=== PATIENT | male | born 1960 | race Caucasian/White ===

== ENCOUNTER → 2016-08-18 | Outpatient (CLI) | payer OTHER ==
[2015-02-13 11:05] VITALS: BP 137/71
[~2016-08-18] MED LIST: AMOX1TAB61 PO; CETI10CA PO; FLUT16SP2 NS; MULT-460 PO; OXYC-323 PO; RANI150T2 PO
--- NOTE | 2016-08-18 10:05 | RAD ---
Indication restage lymphoma. PET/CT was performed from the skull through the proximal thigh. CT was performed primarily for localization and attenuation purposes as opposed primary diagnostic purposes. The blood sugar during the examination was 108. 14 mCi of FDG was injected. Note is made of a previous examination one year ago. On CT the visualized brain appears unremarkable. Polyps or retention cysts are noted in the maxillary sinuses. A significant finding is not seen in the neck. No significant axillary or mediastinal adenopathy is seen. No significant hilar adenopathy is seen. An acute or significant finding in the chest is not seen. No acute or significant finding seen in the abdomen or pelvis. On PET the FDG is physiologically distributed in the visualized brain. No abnormal activity is seen in the neck. No abnormal activity is seen in the chest. FDG is physiologically distributed in the abdomen and pelvis. IMPRESSION: No evidence of tumor recurrence.
== END | disposition home or self-care (01) ==
LOC: PETSC 07:37
PROVIDERS: ATTEND Internal Medicine Hematology & Oncology
DX: C82.11 Follicular lymphoma grade II, lymph nodes of head, face, and neck (principal)
CPT/HCPCS: 78815; A9552

== ENCOUNTER → 2016-08-30 | Outpatient (CLI) | payer OTHER ==
[2015-02-13 11:05] VITALS: BP 137/71
[2016-08-30 09:34] LABS: BASO % 0 % (0-3); EOS % 1 % (0-3); HEMATOCRIT 44.2 % (39.0-53.0); HEMOGLOBIN 15.6 g/dL (13.0-17.5); LYMPH # 0.3 x10^3/uL (1.0-4.8); LYMPH % 11 % (24-48); MEAN CORPUSCULAR HEMOGLOBIN 33 pg (25-35); MEAN CORPUSCULAR HGB CONC 35 g/dL (31-37); MEAN CORPUSCULAR VOLUME 93 fL (79-100); MONO % 21 % (0-9); NEUT % 67 % (31-73); PLATELET COUNT 127 x10^3/uL (140-400); RED BLOOD COUNT 4.78 x10^6/uL (4.30-5.70); RED CELL DISTRIBUTION WIDTH 13.1 % (11.5-14.5); WHITE BLOOD COUNT 3.1 x10^3/uL (4.0-11.0)
[2016-08-30 09:36] LABS: ALBUMIN 3.8 g/dL (3.4-5.0); ALBUMIN/GLOBULIN RATIO 1.3 (1.0-1.7); CALCIUM 8.9 mg/dL (8.5-10.1); CREATININE 1.2 mg/dL (0.7-1.3); GFR 62.4; POTASSIUM 4.4 mmol/L (3.5-5.1); TOTAL BILIRUBIN 1.2 mg/dL (0.2-1.0); TOTAL PROTEIN 6.8 g/dL (6.4-8.2)
== END | disposition home or self-care (01) ==
LOC: LAB 08:53
PROVIDERS: ATTEND Internal Medicine Hematology & Oncology
DX: C82.11 Follicular lymphoma grade II, lymph nodes of head, face, and neck (principal)
CPT/HCPCS: 36415; 80053; 82232; 83615; 85027

== ENCOUNTER 2016-09-23 09:34 | Day surgery (SDC) | payer OTHER ==
[~2016-09-23 09:34] MED LIST changes: +HYDROmorphone 2 MG/ML VIAL IV PRN; +IV RINGERS,LACTATED 1000ML 1,000 ML IV SCH; +LIDOCAINE 1% 1 ML SYRINGE. ID PRN; +LIDOCAINE 2% PF Vial for OR 5 ML VIAL. ONE; +MORPHINE SULFATE 2 MG/ML DISP.SYRIN. IV PRN; +ONDANSETRON PF 4 MG/2 ML VIAL. IV PRN; +PROCHLORPERAZINE 10 MG/2 ML VIAL. IV PRN; +PROPOFOL 20 ML IV ONE; +fentaNYL PF VIAL 100 MCG/2 ML VIAL IV PRN
[2016-09-23] MEDS ORDERED: BUPIVACAINE-EPI 0.25%-1:200000 50 ML VIAL. ONE (09:38)
[2016-09-23] MEDS ORDERED: BUPIVACAINE-EPI 0.5%-1:200000 50 ML VIAL. ONE (09:40)
[2016-09-23] MEDS ORDERED: fentaNYL PF VIAL 100 MCG/2 ML VIAL ONE (10:37)
--- NOTE | 2016-09-23 12:00 | DISCH ---
DISCHARGE INSTRUCTIONS Condition on Discharge Condition on Discharge: Stable Activity After Discharge Activity Instructions for Disc: Activity as tolerated, Avoid exertion Lifting Instructions after Dis: No heavy lifting Driving Instructions after Dis: Do not drive today Diet after Discharge Diet after Discharge: Regular Wound Incision Care Wound/Incision Care: Ice to area for comfort Other wound/incision instructi: may shower tomorrow Follow-Up Follow up with: SON Banda MD Sep 23, 2016 12:00
[2016-09-23 12:15] VITALS: BP 118/74
--- NOTE | 2016-09-23 14:23 | PDOC4 ---
Operative Note Operative Note Date of procedure: September 23, 2016 Procedure: Removal left subclavian power port Preoperative diagnosis: Completed chemotherapy for lymphoma Postoperative diagnosis: Same Surgeon: Fernando Anesthesia: Local with sedation Indications: Gerardo has completed his chemotherapy for treatment of his lymphoma and is brought for removal of his port Operative report: With IV sedation on board the left chest was prepped and draped in usual sterile fashion. Half percent Marcaine with epinephrine was infiltrated over the port site. Incision made and the port and catheter removed intact along with the fibrinous sheath around the reservoir. Good hemostasis was present. Wound closed with interrupted inverted 3-0 Vicryl in the subcutaneous tissue. Subcuticular 4-0 Monocryl Steri-Strips and a sterile dressing applied.. Patient taken the postoperative stable condition having tolerated procedure well SON BRIGHT MD Sep 23, 2016 14:23
== END 2016-09-23 12:23 | disposition home or self-care (01) ==
LOC: SURG 09:34
PROVIDERS: ATTEND Surgery
DX: C85.90 Non-Hodgkin lymphoma, unspecified, unspecified site (principal); K21.9 Gastro-esophageal reflux disease without esophagitis; Z86.39 Personal history of other endocrine, nutritional and metabolic disease; Z88.1 Allergy status to other antibiotic agents
CPT/HCPCS: 36590; J0690; J2001; J2704; J3010

== ENCOUNTER → 2017-02-28 | Outpatient (CLI) | payer OTHER ==
[~2017-02-28] MED LIST changes: -HYDROmorphone 2 MG/ML VIAL IV PRN; -IV RINGERS,LACTATED 1000ML 1,000 ML IV SCH; -LIDOCAINE 1% 1 ML SYRINGE. ID PRN; -LIDOCAINE 2% PF Vial for OR 5 ML VIAL. ONE; -MORPHINE SULFATE 2 MG/ML DISP.SYRIN. IV PRN; -ONDANSETRON PF 4 MG/2 ML VIAL. IV PRN; -PROCHLORPERAZINE 10 MG/2 ML VIAL. IV PRN; -PROPOFOL 20 ML IV ONE; -fentaNYL PF VIAL 100 MCG/2 ML VIAL IV PRN
[2017-02-28 16:25] LABS: BASO % 1 % (0-3); EOS % 1 % (0-3); HEMATOCRIT 46.8 % (39.0-53.0); HEMOGLOBIN 16.7 g/dL (13.0-17.5); LYMPH # 0.7 x10^3/uL (1.0-4.8); LYMPH % 11 % (24-48); MEAN CORPUSCULAR HEMOGLOBIN 34 pg (25-35); MEAN CORPUSCULAR HGB CONC 36 g/dL (31-37); MEAN CORPUSCULAR VOLUME 94 fL (79-100); MONO % 9 % (0-9); NEUT % 78 % (31-73); PLATELET COUNT 145 x10^3/uL (140-400); RED CELL DISTRIBUTION WIDTH 12.4 % (11.5-14.5); WHITE BLOOD COUNT 6.5 x10^3/uL (4.0-11.0)
[2017-02-28 16:46] LABS: ALBUMIN 3.9 g/dL (3.4-5.0); ALBUMIN/GLOBULIN RATIO 1.3 (1.0-1.7); CALCIUM 7.8 mg/dL (8.5-10.1); CREATININE 1.4 mg/dL (0.7-1.3); GFR 52.2; TOTAL BILIRUBIN 0.8 mg/dL (0.2-1.0)
== END | disposition home or self-care (01) ==
LOC: LAB 16:09
PROVIDERS: ATTEND Internal Medicine Hematology & Oncology
DX: C82.11 Follicular lymphoma grade II, lymph nodes of head, face, and neck (principal)
CPT/HCPCS: 36415; 80053; 82232; 83615; 85025

== ENCOUNTER → 2017-08-28 | Outpatient (CLI) | payer OTHER ==
[2017-08-28 08:50] LABS: ADD MAN DIFF? NO
[2017-08-28 08:54] LABS: BASO % 1 % (0-3); EOS # 0.1 x10^3/uL (0.0-0.7); EOS % 1 % (0-3); HEMATOCRIT 45.4 % (39.0-53.0); HEMOGLOBIN 15.8 g/dL (13.0-17.5); LYMPH # 0.7 x10^3/uL (1.0-4.8); LYMPH % 13 % (24-48); MEAN CORPUSCULAR HEMOGLOBIN 33 pg (25-35); MEAN CORPUSCULAR HGB CONC 35 g/dL (31-37); MEAN CORPUSCULAR VOLUME 94 fL (79-100); MONO # 0.6 x10^3/uL (0.0-1.1); MONO % 11 % (0-9); NEUT % 75 % (31-73); PLATELET COUNT 130 x10^3/uL (140-400); RED BLOOD COUNT 4.85 x10^6/uL (4.30-5.70); RED CELL DISTRIBUTION WIDTH 12.5 % (11.5-14.5); WHITE BLOOD COUNT 5.3 x10^3/uL (4.0-11.0)
[2017-08-28 10:34] LABS: ALBUMIN 3.8 g/dL (3.4-5.0); ALBUMIN/GLOBULIN RATIO 1.3 (1.0-1.7); ALK PHOS 65 U/L (46-116); ALT (SGPT) 35 U/L (16-63); ANION GAP 7 (6-14); AST (SGOT) 26 U/L (15-37); BLOOD UREA NITROGEN 27 mg/dL (8-26); BUN/CREATININE RATIO 21 (6-20); CALCIUM 8.7 mg/dL (8.5-10.1); CARBON DIOXIDE 27 mmol/L (21-32); CHLORIDE 109 mmol/L (98-107); CHOLESTEROL 168 mg/dL (0-200); CREATININE 1.3 mg/dL (0.7-1.3); GFR 56.7; GLUCOSE 105 mg/dL (70-99); HDLC 43 mg/dL (40-60); LACTATE DEHYDROGENASE 183 U/L (85-227); LDLC 114 mg/dL (0-100); NON-HDL CHOLESTEROL 125 mg/dL (0-129); POTASSIUM 4.1 mmol/L (3.5-5.1); SODIUM 143 mmol/L (136-145); TOTAL BILIRUBIN 1.3 mg/dL (0.2-1.0); TOTAL PROTEIN 6.7 g/dL (6.4-8.2); TRIGLYCERIDES 57 mg/dL (0-150); VLDLC 11 mg/dL (0-40)
[2017-08-28 10:39] LABS: CHOLESTEROL/HDL RATIO 3.9
[2017-08-30 14:33] LABS: BETA 2 MICROGLOB 2.2 mg/L (0.6-2.4)
== END | disposition home or self-care (01) ==
LOC: LAB 08:40
DX: Z13.220 Encounter for screening for lipoid disorders (principal); C82.11 Follicular lymphoma grade II, lymph nodes of head, face, and neck
CPT/HCPCS: 36415; 80053; 80061; 82232; 83615; 85025

== ENCOUNTER → 2017-08-31 | Outpatient (CLI) | payer OTHER | END | disposition home or self-care (01) | LOC: PETSC 07:50 | DX: C82.11 Follicular lymphoma grade II, lymph nodes of head, face, and neck (principal) | CPT/HCPCS: 78815; A9552 ==

== ENCOUNTER → 2018-03-02 | Outpatient (CLI) | payer OTHER ==
[~2018-03-02] MED LIST changes: -OXYC-323 PO; +OXYC1TAB15 PO
[2018-03-02 09:36] LABS: ALBUMIN/GLOBULIN RATIO 1.3 (1.0-1.7); CREATININE 1.2 mg/dL (0.7-1.3); GFR 62.2; POTASSIUM 4.3 mmol/L (3.5-5.1); TOTAL BILIRUBIN 1.1 mg/dL (0.2-1.0); TOTAL PROTEIN 7.2 g/dL (6.4-8.2)
[2018-03-02 09:38] LABS: CHOLESTEROL/HDL RATIO 5.1
[2018-03-02 10:12] LABS: BASO % 0 % (0-3); EOS # 0.1 x10^3/uL (0.0-0.7); EOS % 1 % (0-3); HEMATOCRIT 48.3 % (39.0-53.0); HEMOGLOBIN 17.1 g/dL (13.0-17.5); LYMPH # 0.7 x10^3/uL (1.0-4.8); LYMPH % 12 % (24-48); MEAN CORPUSCULAR HEMOGLOBIN 33 pg (25-35); MEAN CORPUSCULAR HGB CONC 36 g/dL (31-37); MEAN CORPUSCULAR VOLUME 92 fL (79-100); MONO # 0.6 x10^3/uL (0.0-1.1); MONO % 10 % (0-9); NEUT # 4.5 x10^3uL (1.8-7.7); NEUT % 77 % (31-73); PLATELET COUNT 132 x10^3/uL (140-400); RED BLOOD COUNT 5.26 x10^6/uL (4.30-5.70); RED CELL DISTRIBUTION WIDTH 12.8 % (11.5-14.5); WHITE BLOOD COUNT 5.8 x10^3/uL (4.0-11.0)
== END | disposition home or self-care (01) ==
LOC: LAB 08:44
PROVIDERS: ATTEND Internal Medicine Hematology & Oncology
DX: Z13.220 Encounter for screening for lipoid disorders (principal); C82.11 Follicular lymphoma grade II, lymph nodes of head, face, and neck
CPT/HCPCS: 36415; 80053; 80061; 82232; 83615; 85025

== ENCOUNTER → 2018-08-30 | Outpatient (CLI) | payer OTHER ==
[2018-08-30 08:23] LABS: BASO % 0 % (0-3); EOS # 0.1 x10^3/uL (0.0-0.7); EOS % 1 % (0-3); HEMATOCRIT 47.4 % (39.0-53.0); HEMOGLOBIN 16.6 g/dL (13.0-17.5); LYMPH # 0.6 x10^3/uL (1.0-4.8); LYMPH % 8 % (24-48); MEAN CORPUSCULAR HEMOGLOBIN 33 pg (25-35); MEAN CORPUSCULAR HGB CONC 35 g/dL (31-37); MEAN CORPUSCULAR VOLUME 93 fL (79-100); MONO # 0.7 x10^3/uL (0.0-1.1); MONO % 10 % (0-9); NEUT # 5.7 x10^3uL (1.8-7.7); NEUT % 81 % (31-73); PLATELET COUNT 139 x10^3/uL (140-400); RED BLOOD COUNT 5.11 x10^6/uL (4.30-5.70); RED CELL DISTRIBUTION WIDTH 12.7 % (11.5-14.5); WHITE BLOOD COUNT 7.1 x10^3/uL (4.0-11.0)
[2018-08-30 08:34] LABS: ALBUMIN 3.9 g/dL (3.4-5.0); ALBUMIN/GLOBULIN RATIO 1.6 (1.0-1.7); CALCIUM 8.8 mg/dL (8.5-10.1); CREATININE 1.2 mg/dL (0.7-1.3); POTASSIUM 4.1 mmol/L (3.5-5.1); TOTAL BILIRUBIN 1.3 mg/dL (0.2-1.0); TOTAL PROTEIN 6.4 g/dL (6.4-8.2)
--- NOTE | 2018-08-30 11:21 | RAD ---
FDG tumor localization scan, PET/CT, 08/30/2018: HISTORY: Restaging lymphoma Following IV injection of 14.5 mCi of 18 F-FDG, imaging was performed from the skull base to the proximal thighs. The noncontrast CT component was performed for attenuation correction and anatomic localization purposes rather than for primary diagnosis. The patient's blood glucose level at the time of injection was 96 MG/DL. Comparison is made to a study from 08/31/2017. There is symmetrically increased activity in the tonsillar regions compatible with inflammation. Physiologic activity is seen in the tongue and laryngeal regions. Symmetric parotid and submandibular gland activity is presumably physiologic. No hypermetabolic cervical adenopathy is seen. No abnormal mediastinal or pulmonary FDG uptake is seen. Normal GI tract and urinary tract activity is present in the abdomen and pelvis. No hypermetabolic abdominal or pelvic lesion is identified. Incidental CT findings include the presence of mucosal thickening along the floor of the left maxillary sinus. The right thyroid lobe appears to be surgically absent. A small low density focus is noted in the lower pole of left lobe of the thyroid gland. No abnormal FDG uptake is present at that level. IMPRESSION: No FDG/PET evidence of recurrent lymphoma.
== END | disposition home or self-care (01) ==
LOC: PETSC 07:15
PROVIDERS: ATTEND Internal Medicine Hematology & Oncology
DX: C82.11 Follicular lymphoma grade II, lymph nodes of head, face, and neck (principal); J34.89 Other specified disorders of nose and nasal sinuses
CPT/HCPCS: 36415; 78815; 80053; 82232; 83615; 85025; A9552

== ENCOUNTER → 2019-03-20 | Outpatient (CLI) | payer OTHER ==
[2019-03-20 09:44] LABS: BASO % 0 % (0-3); EOS # 0.1 x10^3/uL (0.0-0.7); EOS % 1 % (0-3); HEMATOCRIT 46.5 % (39.0-53.0); HEMOGLOBIN 16.4 g/dL (13.0-17.5); LYMPH # 0.9 x10^3/uL (1.0-4.8); LYMPH % 12 % (24-48); MEAN CORPUSCULAR HEMOGLOBIN 32 pg (25-35); MEAN CORPUSCULAR HGB CONC 35 g/dL (31-37); MEAN CORPUSCULAR VOLUME 92 fL (79-100); MONO # 0.6 x10^3/uL (0.0-1.1); MONO % 8 % (0-9); NEUT # 5.9 x10^3/uL (1.8-7.7); NEUT % 80 % (31-73); PLATELET COUNT 126 x10^3/uL (140-400); RED BLOOD COUNT 5.07 x10^6/uL (4.30-5.70); RED CELL DISTRIBUTION WIDTH 12.8 % (11.5-14.5); WHITE BLOOD COUNT 7.4 x10^3/uL (4.0-11.0)
[2019-03-20 10:03] LABS: ALBUMIN/GLOBULIN RATIO 1.5 (1.0-1.7); CREATININE 1.3 mg/dL (0.7-1.3); GFR 56.5; POTASSIUM 4.2 mmol/L (3.5-5.1); TOTAL BILIRUBIN 1.3 mg/dL (0.2-1.0); TOTAL PROTEIN 6.7 g/dL (6.4-8.2)
== END | disposition home or self-care (01) ==
LOC: LAB 08:40
PROVIDERS: ATTEND Internal Medicine Hematology & Oncology
DX: C82.11 Follicular lymphoma grade II, lymph nodes of head, face, and neck (principal)
CPT/HCPCS: 36415; 80053; 82232; 83615; 85025

== ENCOUNTER → 2019-09-17 | Outpatient (CLI) | payer OTHER ==
[2019-09-17 12:18] LABS: BASO % 0 % (0-3); EOS % 1 % (0-3); HEMATOCRIT 45.4 % (39.0-53.0); HEMOGLOBIN 15.9 g/dL (13.0-17.5); LYMPH # 0.8 x10^3/uL (1.0-4.8); LYMPH % 12 % (24-48); MEAN CORPUSCULAR HEMOGLOBIN 33 pg (25-35); MEAN CORPUSCULAR HGB CONC 35 g/dL (31-37); MEAN CORPUSCULAR VOLUME 93 fL (79-100); MONO # 0.5 x10^3/uL (0.0-1.1); MONO % 7 % (0-9); NEUT # 5.3 x10^3/uL (1.8-7.7); NEUT % 79 % (31-73); PLATELET COUNT 129 x10^3/uL (140-400); RED CELL DISTRIBUTION WIDTH 12.7 % (11.5-14.5); WHITE BLOOD COUNT 6.6 x10^3/uL (4.0-11.0)
[2019-09-17 12:24] LABS: ALBUMIN 3.8 g/dL (3.4-5.0); ALBUMIN/GLOBULIN RATIO 1.6 (1.0-1.7); CALCIUM 8.5 mg/dL (8.5-10.1); CREATININE 1.3 mg/dL (0.7-1.3); GFR 56.3; POTASSIUM 4.5 mmol/L (3.5-5.1); TOTAL BILIRUBIN 0.9 mg/dL (0.2-1.0); TOTAL PROTEIN 6.2 g/dL (6.4-8.2)
== END | disposition home or self-care (01) ==
LOC: LAB 11:28
PROVIDERS: ATTEND Internal Medicine Hematology & Oncology
DX: C82.11 Follicular lymphoma grade II, lymph nodes of head, face, and neck (principal)
CPT/HCPCS: 36415; 80053; 82232; 83615; 85025

== ENCOUNTER → 2019-09-19 | Outpatient (CLI) | payer OTHER ==
[2019-09-20 13:13] LABS: KAPPA FREE 16.8 mg/L (3.3-19.4); KAPPA LAMBDA RATIO 1.28 (0.26-1.65); LAMBDA FREE 13.1 mg/L (5.7-26.3)
[2019-09-23 17:08] LABS: IMMUNOGLOBULIN A 94 mg/dL (90-386); IMMUNOGLOBULIN G 701 mg/dL (603-1613); IMMUNOGLOBULIN M 30 mg/dL (20-172)
[2019-09-23 18:07] LABS: ALBUM 3.9 g/dL (2.9-4.4); ALPHA 1 0.2 g/dL (0.0-0.4); ALPHA 2 0.4 g/dL (0.4-1.0); BETA 0.9 g/dL (0.7-1.3); GAMMA 0.6 g/dL (0.4-1.8); SPEP AG RATIO 1.9 (0.7-1.7)
== END | disposition home or self-care (01) ==
LOC: ONCLAB 14:41
PROVIDERS: ATTEND Internal Medicine Hematology & Oncology
DX: Z85.72 Personal history of non-Hodgkin lymphomas (principal)
CPT/HCPCS: 36415; 82784; 83520; 84165; 86334

== ENCOUNTER → 2020-01-31 | Outpatient (CLI) | payer OTHER | LOC: LAB 08:49 | PROVIDERS: ATTEND Internal Medicine | DX: Z12.5 Encounter for screening for malignant neoplasm of prostate (principal) | CPT/HCPCS: 36415; G0103 ==

== ENCOUNTER → 2020-03-24 | Outpatient (CLI) | payer OTHER ==
[2020-03-24 08:48] LABS: BASO % 0 % (0-3); EOS # 0.1 x10^3/uL (0.0-0.7); EOS % 1 % (0-3); HEMATOCRIT 46.9 % (39.0-53.0); HEMOGLOBIN 16.4 g/dL (13.0-17.5); LYMPH # 0.8 x10^3/uL (1.0-4.8); LYMPH % 13 % (24-48); MEAN CORPUSCULAR HEMOGLOBIN 32 pg (25-35); MEAN CORPUSCULAR HGB CONC 35 g/dL (31-37); MEAN CORPUSCULAR VOLUME 92 fL (79-100); MONO # 0.5 x10^3/uL (0.0-1.1); MONO % 8 % (0-9); NEUT # 4.7 x10^3/uL (1.8-7.7); NEUT % 78 % (31-73); PLATELET COUNT 141 x10^3/uL (140-400); RED BLOOD COUNT 5.12 x10^6/uL (4.30-5.70); RED CELL DISTRIBUTION WIDTH 12.5 % (11.5-14.5); WHITE BLOOD COUNT 6.1 x10^3/uL (4.0-11.0)
[2020-03-24 09:10] LABS: CREATININE 1.3 mg/dL (0.7-1.3); GFR 56.3; POTASSIUM 3.9 mmol/L (3.5-5.1)
[2020-03-24 09:17] LABS: ALBUMIN 3.8 g/dL (3.4-5.0); DIRECT BILIRUBIN 0.2 mg/dL (0.0-0.2); TOTAL BILIRUBIN 1.2 mg/dL (0.2-1.0); TOTAL PROTEIN 6.6 g/dL (6.4-8.2)
[2020-03-25 14:11] LABS: KAPPA FREE 15.9 mg/L (3.3-19.4); KAPPA LAMBDA RATIO 1.26 (0.26-1.65); LAMBDA FREE 12.6 mg/L (5.7-26.3)
[2020-03-26 14:17] LABS: IMMUNOGLOBULIN A 101 mg/dL (90-386); IMMUNOGLOBULIN G 721 mg/dL (603-1613); IMMUNOGLOBULIN M 25 mg/dL (20-172)
[2020-03-26 15:15] LABS: FREE T4 0.85 ng/dL (0.76-1.46); THYROID STIM HORMONE (TSH) 3.062 uIU/mL (0.358-3.74)
== END ==
LOC: ONCLAB 08:26
PROVIDERS: ATTEND Internal Medicine Hematology & Oncology
DX: D89.9 Disorder involving the immune mechanism, unspecified (principal)
CPT/HCPCS: 36415; 80048; 80076; 82784; 83520; 83615; 84439; 84443; 85025; 86146; 86334

== ENCOUNTER → 2020-03-24 | Outpatient (CLI) | payer OTHER ==
[2020-03-24 09:25] LABS: CHOLESTEROL/HDL RATIO 5.2
== END ==
LOC: LAB 08:33
PROVIDERS: ATTEND Internal Medicine
DX: Z12.5 Encounter for screening for malignant neoplasm of prostate (principal); C85.90 Non-Hodgkin lymphoma, unspecified, unspecified site
CPT/HCPCS: 36415; 80061; G0103

== ENCOUNTER → 2020-11-13 | Outpatient (CLI) | payer OTHER | LOC: LAB 09:00 | PROVIDERS: ATTEND Internal Medicine Pulmonary Disease | DX: R05 Cough (principal); R09.81 Nasal congestion; Z20.822 Contact with and (suspected) exposure to COVID-19 | CPT/HCPCS: 87426; U0003; U0005 ==

== ENCOUNTER → 2021-03-29 | Outpatient (CLI) | payer OTHER ==
[2021-03-29 09:33] LABS: BASO % 0 % (0-3); EOS # 0.1 x10^3/uL (0.0-0.7); EOS % 1 % (0-3); HEMATOCRIT 46.4 % (39.0-53.0); HEMOGLOBIN 16.5 g/dL (13.0-17.5); LYMPH # 0.8 x10^3/uL (1.0-4.8); LYMPH % 13 % (24-48); MEAN CORPUSCULAR HEMOGLOBIN 33 pg (25-35); MEAN CORPUSCULAR HGB CONC 36 g/dL (31-37); MEAN CORPUSCULAR VOLUME 91 fL (79-100); MONO # 0.6 x10^3/uL (0.0-1.1); MONO % 9 % (0-9); NEUT # 4.8 x10^3/uL (1.8-7.7); NEUT % 76 % (31-73); PLATELET COUNT 138 x10^3/uL (140-400); RED BLOOD COUNT 5.07 x10^6/uL (4.30-5.70); RED CELL DISTRIBUTION WIDTH 12.8 % (11.5-14.5); WHITE BLOOD COUNT 6.3 x10^3/uL (4.0-11.0)
[2021-03-29 09:52] LABS: CHOLESTEROL/HDL RATIO 4.3
[2021-03-29 09:53] LABS: ALBUMIN 3.7 g/dL (3.4-5.0); CALCIUM 8.6 mg/dL (8.5-10.1); CREATININE 1.3 mg/dL (0.7-1.3); DIRECT BILIRUBIN 0.2 mg/dL (0.0-0.2); GFR 56.1; TOTAL BILIRUBIN 1.1 mg/dL (0.2-1.0); TOTAL PROTEIN 6.4 g/dL (6.4-8.2)
[2021-03-30 17:10] LABS: IMMUNOGLOBULIN A 99 mg/dL (61-437); IMMUNOGLOBULIN G 669 mg/dL (603-1613); IMMUNOGLOBULIN M 27 mg/dL (20-172)
== END ==
LOC: ONCLAB 08:50
PROVIDERS: ATTEND Internal Medicine Hematology & Oncology
DX: C61 Malignant neoplasm of prostate (principal); E78.2 Mixed hyperlipidemia; Z85.72 Personal history of non-Hodgkin lymphomas
CPT/HCPCS: 80048; 80061; 80076; 82232; 82784; 83615; 84153; 84154; 84165; 85025; 86334